=== PATIENT | male | born 1945 | race Caucasian/White ===

== ENCOUNTER → 2023-10-02 | Outpatient (CLI) | payer MEDICARE ==
[~2023-10-02] MED LIST: AEC81 PO; ASCO500T19 PO; ATOR40TA71 PO; CHOL200052 PO; CYAN-52 PO; FERR-82 PO; GLIP10TA9 PO; LISI20TA24 PO; MAGN400T40 PO; OMEP20CA12 PO; PIOG15TA66 PO; TAMS-1 PO; VITA800012 PO; ZINC50TA64 PO
== END | disposition home or self-care (01) ==
LOC: RAH 12:25
PROVIDERS: ATTEND Nurse Practitioner Family
DX: I70.203 Unspecified atherosclerosis of native arteries of extremities, bilateral legs (principal); R60.0 Localized edema; L97.909 Non-pressure chronic ulcer of unspecified part of unspecified lower leg with unspecified severity
CPT/HCPCS: 93925; 93970

== ENCOUNTER 2023-11-12 15:34 | Inpatient (IN) | payer MEDICARE ==
[~2023-11-12] VITALS: Ht 167.6 cm; Wt 76.7 kg
[~2023-11-12 15:34] MED LIST changes: +CILO50TA2 PO; +FOLI0.8C PO; +GABA600T10 PO; +LISI10TA24 PO; -LISI20TA24 PO; +LOVA20TA3 PO; +METF-446 PO; +METO50TA18 PO
[2023-11-12 16:21] LABS: BASOPHILS # (AUTO) 0.07 K/uL (0.00-0.20); BASOPHILS % (AUTO) 0.7 % (0.0-5.0); EOSINOPHILS # (AUTO) 0.28 K/uL (0.00-0.70); EOSINOPHILS % (AUTO) 2.8 % (0.0-8.0); HEMATOCRIT 33.1 % (42-54); IMMATURE GRANULOCYTE ABSOLUTE 0.04 K/uL (0-1); LYMPHOCYTES # (AUTO) 0.9 K/uL (1.0-4.8); LYMPHOCYTES % (AUTO) 8.7 % (21.0-51.0); MEAN CORPUSCULAR HEMOGLOBIN 26.7 pg (27.0-33.0); MEAN CORPUSCULAR HGB CONC 30.8 g/dL (32.0-36.0); MEAN CORPUSCULAR VOLUME 86.6 fL (79-99); MONOCYTES # (AUTO) 0.8 K/uL (0.1-1.0); MONOCYTES % (AUTO) 8.5 % (3.0-13.0); NEUTROPHILS # (AUTO) 7.8 K/uL (1.8-7.7); NEUTROPHILS % (AUTO) 78.9 % (40.0-77.0); PLATELET COUNT (AUTO) 281 K/uL (130-400); RED BLOOD CELL COUNT(AUTO) 3.82 MIL/uL (4.50-6.20); RED CELL DISTRIBUTION WIDTH 19.8 % (11.0-15.5); WHITE BLOOD COUNT (AUTO) 9.9 K/uL (4.8-10.8)
[2023-11-12 16:22] LABS: APPEARANCE,URINE TURBID (CLEAR); BILIRUBIN,URINE NEGATIVE (NEGATIVE); GLUCOSE, URINE (UA) 70 mg/dL (NEGATIVE); KETONES,URINE NEGATIVE (NEGATIVE); LEUKOCYTE ESTERASE ,URINE 500 Leu/uL (NEGATIVE); NITRATE,URINE NEGATIVE (NEGATIVE); OCCULT BLOOD,URINE LARGE (NEGATIVE); PH,URINE 6.5 (5.0-8.0); PROTEIN,URINE 100 mg/dL (NEGATIVE); UROBILINOGEN,URINE 0.2 mg/dL (0.2-1.0)
[2023-11-12 16:30] LABS: COLOR,URINE YELLOW (YELLOW)
[2023-11-12 16:31] LABS: ADD UA MICROSCOPIC YES
[2023-11-12 16:32] LABS: CREATININE 1.1 mg/dL (0.5-1.5); POTASSIUM 4.2 mmol/L (3.5-5.1)
[2023-11-12 16:49] LABS: ALBUMIN 1.9 g/dL (3.5-5.0); BILIRUBIN,TOTAL 0.5 mg/dL (0.2-1.0); TOTAL PROTEIN, SERUM 5.8 g/dL (6.0-8.3)
[2023-11-12 16:53] LABS: BACTERIA,URINE MOD /HPF (None Seen); RBC,URINE TNTC /HPF (0-1); WBC CLUMP MANY /HPF (0-1); WBC,URINE TNTC /HPF (0-1)
[2023-11-12 16:55] LABS: INR 1.13 (0.85-1.15)
[2023-11-12 16:56] LABS: PARTIAL THROMBOPLASTIN TIME 32.3 SEC (26.3-35.5)
[2023-11-12] MEDS: 0.9%NACL 1000ML 2,052 ML IV ONE (17:59)
[2023-11-12] MEDS ORDERED: ONDANSETRON 4MG INJ IV PRN (19:30)
[2023-11-12] MEDS ORDERED: MORPHINE 4 MG SYG IV PRN (19:30)
[2023-11-12] MEDS ORDERED: MORPHINE 2 MG SYG IV PRN (19:30)
[2023-11-12] MEDS ORDERED: ACETAMINOPHEN 325 MG TAB PO PRN ×2 (19:30)
[2023-11-12] MEDS: CEFTRIAXONE 1G VIAL IV SCH (20:51)
[2023-11-12] MEDS: LACTATED RINGERS 1000ML 1,000 ML IV SCH (20:52)
[2023-11-12] MEDS: BALSAM PERU/CASTOR OIL 60 GM TUBE TP SCH (20:52)
[2023-11-12] MEDS: MEROPENEM 1 GM in 0.9%NACL 100ML 100 ML IVPB SCH (21:03)
[2023-11-12] MEDS: MEROPENEM 1 GM VIAL ONE (21:03)
[2023-11-13] VITALS (9 sets, daily range): BP systolic 141–169; BP diastolic 62–81; PULSE 83–92; RESP 16–18; O2SAT 97–99
[2023-11-13] MEDS ORDERED: POTASSIUM CHLORIDE 10% ELIXIR 20 MEQ/15 ML UDCUP PO PRN (02:00)
[2023-11-13] MEDS ORDERED: POTASSIUM CHLORIDE 20MEQ/100ML 100 ML IV PRN (02:00)
[2023-11-13] MEDS ORDERED: PHARMACY COMMUNICATION MISC SCH ×2 (04:30→07:30)
[2023-11-13 05:53] LABS: BASOPHILS # (AUTO) 0.03 K/uL (0.00-0.20); BASOPHILS % (AUTO) 0.4 % (0.0-5.0); EOSINOPHILS # (AUTO) 0.29 K/uL (0.00-0.70); EOSINOPHILS % (AUTO) 3.6 % (0.0-8.0); HEMATOCRIT 32.1 % (42-54); IMMATURE GRANULOCYTE ABSOLUTE 0.05 K/uL (0-1); LYMPHOCYTES # (AUTO) 0.9 K/uL (1.0-4.8); LYMPHOCYTES % (AUTO) 10.9 % (21.0-51.0); MEAN CORPUSCULAR HEMOGLOBIN 26.3 pg (27.0-33.0); MEAN CORPUSCULAR HGB CONC 30.2 g/dL (32.0-36.0); MONOCYTES # (AUTO) 0.8 K/uL (0.1-1.0); MONOCYTES % (AUTO) 9.6 % (3.0-13.0); NEUTROPHILS % (AUTO) 74.9 % (40.0-77.0); PLATELET COUNT (AUTO) 273 K/uL (130-400); RED BLOOD CELL COUNT(AUTO) 3.69 MIL/uL (4.50-6.20); RED CELL DISTRIBUTION WIDTH 19.8 % (11.0-15.5); WHITE BLOOD COUNT (AUTO) 8.1 K/uL (4.8-10.8)
[2023-11-13 06:04] LABS: INR 1.08 (0.85-1.15); PROTHROMBIN TIME 12.5 SEC (9.6-11.6)
[2023-11-13 06:08] LABS: MAGNESIUM 1.6 mg/dL (1.80-2.40); PHOSPHORUS 3.1 mg/dL (2.5-4.9); POTASSIUM 3.8 mmol/L (3.5-5.1); VANCOMYCIN TROUGH 17.3 UG/ML (10.0-20.0)
[2023-11-13] MEDS: INSULIN HUMULIN R 100 UNIT/ML 3ML SQ SCH (06:49)
[2023-11-13] MEDS: FAMOTIDINE 20MG VIAL IV SCH (08:48)
[2023-11-13 09:58] LABS: CREATINE KINASE, TOTAL < 7 U/L (21-232)
[2023-11-13] MEDS ORDERED: VANCOMYCIN PROTOCOL PER PHARMACY IV SCH (10:00)
[2023-11-13] MEDS ORDERED: COMPOUND IV MISC 1 EACH IVSOLN MISC PRN (10:30)
[2023-11-13] MEDS: MEROPENEM 1 GM in 0.9%NACL 100ML IVPB SCH (11:41)
[2023-11-13] MEDS: VANCOMYCIN 1.25 GM/250 ML BAG 250 ML IV SCH (15:17)
[2023-11-13] MEDS: NYSTATIN 15 GM POWDER TP ONE (21:23)
[2023-11-14] VITALS (29 sets, daily range): BP systolic 142–175; BP diastolic 70–81; PULSE 76–90; RESP 15–20; O2SAT 94–97
[2023-11-14] MEDS: MORPHINE 2 MG SYG IV PRN (00:08)
[2023-11-14 06:36] LABS: BASOPHILS # (AUTO) 0.05 K/uL (0.00-0.20); BASOPHILS % (AUTO) 0.7 % (0.0-5.0); EOSINOPHILS # (AUTO) 0.22 K/uL (0.00-0.70); HEMATOCRIT 32.2 % (42-54); IMMATURE GRANULOCYTE ABSOLUTE 0.05 K/uL (0-1); LYMPHOCYTES # (AUTO) 0.6 K/uL (1.0-4.8); LYMPHOCYTES % (AUTO) 8.6 % (21.0-51.0); MEAN CORPUSCULAR HEMOGLOBIN 26.6 pg (27.0-33.0); MEAN CORPUSCULAR HGB CONC 30.4 g/dL (32.0-36.0); MEAN CORPUSCULAR VOLUME 87.3 fL (79-99); MONOCYTES # (AUTO) 0.7 K/uL (0.1-1.0); MONOCYTES % (AUTO) 9.7 % (3.0-13.0); NEUTROPHILS # (AUTO) 5.7 K/uL (1.8-7.7); NEUTROPHILS % (AUTO) 77.3 % (40.0-77.0); PLATELET COUNT (AUTO) 242 K/uL (130-400); RED BLOOD CELL COUNT(AUTO) 3.69 MIL/uL (4.50-6.20); RED CELL DISTRIBUTION WIDTH 19.3 % (11.0-15.5); WHITE BLOOD COUNT (AUTO) 7.3 K/uL (4.8-10.8)
[2023-11-14 07:10] LABS: ALBUMIN 1.8 g/dL (3.5-5.0); BILIRUBIN,TOTAL 0.6 mg/dL (0.2-1.0); POTASSIUM 3.9 mmol/L (3.5-5.1); TOTAL PROTEIN, SERUM 5.5 g/dL (6.0-8.3)
[2023-11-14] MEDS ORDERED: LIDOCAINE PF 100MG/5ML (2%) SYRINGE 5ML ONE (15:40)
[2023-11-14] MEDS ORDERED: ROCURONIUM BROMIDE 10MG/1ML 5ML VL ONE (15:41)
[2023-11-14] MEDS ORDERED: DEXAMETHASONE SOD PHOSPHATE 4 MG/ML 1ML VIAL ONE (15:41)
[2023-11-14] MEDS ORDERED: PROPOFOL 10 MG/ML 20ML VIAL IV ONE ×2 (15:41→15:42)
[2023-11-14] MEDS ORDERED: FENTANYL CITRATE PF 50 MCG/1 ML 2ML VIAL ONE ×2 (15:41→16:51)
[2023-11-14] MEDS ORDERED: MIDAZOLAM HCL 1 MG/ML 2ML VIAL ONE (15:41)
[2023-11-14] MEDS ORDERED: ONDANSETRON 4MG INJ ONE (15:42)
[2023-11-14] MEDS: BUPIVACAINE/PF 0.5% 30ML VIAL ONE (16:36)
[2023-11-14] MEDS ORDERED: NEOSTIGMINE METHYLSULFATE 1MG/ML IV ONE (17:14)
[2023-11-14] MEDS ORDERED: GLYCOPYRROLATE 0.2 MG/ML 5 ML VIAL ONE (17:14)
[2023-11-14] MEDS: MEPERIDINE-PF 25 MG/ML SYG ONE (18:08)
[2023-11-15] VITALS (7 sets, daily range): BP systolic 120–163; BP diastolic 54–77; PULSE 68–84; RESP 16–18; O2SAT 94–95
[2023-11-15 04:53] LABS: BASOPHILS # (AUTO) 0.05 K/uL (0.00-0.20); BASOPHILS % (AUTO) 0.6 % (0.0-5.0); EOSINOPHILS # (AUTO) 0.06 K/uL (0.00-0.70); EOSINOPHILS % (AUTO) 0.7 % (0.0-8.0); HEMATOCRIT 30.6 % (42-54); IMMATURE GRANULOCYTE ABSOLUTE 0.03 K/uL (0-1); LYMPHOCYTES # (AUTO) 0.7 K/uL (1.0-4.8); LYMPHOCYTES % (AUTO) 8.8 % (21.0-51.0); MEAN CORPUSCULAR HEMOGLOBIN 26.8 pg (27.0-33.0); MEAN CORPUSCULAR HGB CONC 30.4 g/dL (32.0-36.0); MEAN CORPUSCULAR VOLUME 88.2 fL (79-99); MONOCYTES # (AUTO) 0.7 K/uL (0.1-1.0); MONOCYTES % (AUTO) 9.1 % (3.0-13.0); NEUTROPHILS # (AUTO) 6.6 K/uL (1.8-7.7); NEUTROPHILS % (AUTO) 80.4 % (40.0-77.0); PLATELET COUNT (AUTO) 253 K/uL (130-400); RED BLOOD CELL COUNT(AUTO) 3.47 MIL/uL (4.50-6.20); WHITE BLOOD COUNT (AUTO) 8.2 K/uL (4.8-10.8)
[2023-11-15 05:12] LABS: CREATININE 0.9 mg/dL (0.5-1.5); MAGNESIUM 1.5 mg/dL (1.80-2.40); PHOSPHORUS 3.9 mg/dL (2.5-4.9); POTASSIUM 4.3 mmol/L (3.5-5.1)
[2023-11-15] MEDS: MEROPENEM 1 GM in 0.9%NACL 100ML 100 ML IVPB SCH (05:15)
[2023-11-15] MEDS: MAGNESIUM 2GM PREMIX 50ML 50 ML IV PRN (06:53)
[2023-11-15] MEDS: METOPROLOL TARTRATE 50 MG TAB PO SCH (09:03)
[2023-11-15] MEDS: LISINOPRIL 10 MG TABLET PO SCH (09:03)
[2023-11-15 11:39] LABS: CREATININE 0.9 mg/dL (0.5-1.5); POTASSIUM 4.2 mmol/L (3.5-5.1)
[2023-11-16] VITALS (9 sets, daily range): BP systolic 111–144; BP diastolic 60–72; PULSE 66–82; RESP 16–18; O2SAT 96
[2023-11-16 05:40] LABS: BASOPHILS # (AUTO) 0.04 K/uL (0.00-0.20); BASOPHILS % (AUTO) 0.6 % (0.0-5.0); EOSINOPHILS # (AUTO) 0.26 K/uL (0.00-0.70); EOSINOPHILS % (AUTO) 3.9 % (0.0-8.0); HEMATOCRIT 30.2 % (42-54); IMMATURE GRANULOCYTE ABSOLUTE 0.04 K/uL (0-1); LYMPHOCYTES # (AUTO) 0.8 K/uL (1.0-4.8); LYMPHOCYTES % (AUTO) 12.5 % (21.0-51.0); MEAN CORPUSCULAR HEMOGLOBIN 27.5 pg (27.0-33.0); MEAN CORPUSCULAR HGB CONC 31.5 g/dL (32.0-36.0); MEAN CORPUSCULAR VOLUME 87.3 fL (79-99); MONOCYTES # (AUTO) 0.7 K/uL (0.1-1.0); MONOCYTES % (AUTO) 10.8 % (3.0-13.0); NEUTROPHILS # (AUTO) 4.8 K/uL (1.8-7.7); NEUTROPHILS % (AUTO) 71.6 % (40.0-77.0); PLATELET COUNT (AUTO) 251 K/uL (130-400); RED BLOOD CELL COUNT(AUTO) 3.46 MIL/uL (4.50-6.20); RED CELL DISTRIBUTION WIDTH 19.6 % (11.0-15.5); WHITE BLOOD COUNT (AUTO) 6.7 K/uL (4.8-10.8)
[2023-11-16 06:04] LABS: CREATININE 0.9 mg/dL (0.5-1.5); POTASSIUM 3.8 mmol/L (3.5-5.1)
[2023-11-16] MEDS: HEPARIN 5,000 UNIT VIAL SQ SCH (09:24)
[2023-11-16] MEDS: VANCOMYCIN 1.25 GM/250 ML BAG 250 ML IV SCH (14:02)
[2023-11-17] VITALS (7 sets, daily range): BP systolic 120–161; BP diastolic 55–78; PULSE 66–78; RESP 16–18; O2SAT 95–97
[2023-11-17 05:58] LABS: BASOPHILS # (AUTO) 0.03 K/uL (0.00-0.20); BASOPHILS % (AUTO) 0.6 % (0.0-5.0); EOSINOPHILS # (AUTO) 0.18 K/uL (0.00-0.70); EOSINOPHILS % (AUTO) 3.4 % (0.0-8.0); HEMATOCRIT 27.7 % (42-54); IMMATURE GRANULOCYTE ABSOLUTE 0.05 K/uL (0-1); LYMPHOCYTES # (AUTO) 0.8 K/uL (1.0-4.8); LYMPHOCYTES % (AUTO) 15.1 % (21.0-51.0); MEAN CORPUSCULAR HEMOGLOBIN 26.6 pg (27.0-33.0); MEAN CORPUSCULAR HGB CONC 30.7 g/dL (32.0-36.0); MEAN CORPUSCULAR VOLUME 86.8 fL (79-99); MONOCYTES # (AUTO) 0.6 K/uL (0.1-1.0); MONOCYTES % (AUTO) 10.7 % (3.0-13.0); NEUTROPHILS # (AUTO) 3.6 K/uL (1.8-7.7); NEUTROPHILS % (AUTO) 69.2 % (40.0-77.0); PLATELET COUNT (AUTO) 215 K/uL (130-400); RED BLOOD CELL COUNT(AUTO) 3.19 MIL/uL (4.50-6.20); RED CELL DISTRIBUTION WIDTH 19.4 % (11.0-15.5); WHITE BLOOD COUNT (AUTO) 5.2 K/uL (4.8-10.8)
[2023-11-17 06:09] LABS: POTASSIUM 3.6 mmol/L (3.5-5.1)
[2023-11-17] MEDS: VANCOMYCIN 1G/250ML KIT 250 ML IV SCH (15:22)
[2023-11-18 04:00] VITALS: BP 153/70; PULSE 72; RESP 17
[2023-11-18 05:47] LABS: BASOPHILS # (AUTO) 0.03 K/uL (0.00-0.20); BASOPHILS % (AUTO) 0.5 % (0.0-5.0); EOSINOPHILS # (AUTO) 0.16 K/uL (0.00-0.70); EOSINOPHILS % (AUTO) 2.9 % (0.0-8.0); HEMATOCRIT 27.9 % (42-54); IMMATURE GRANULOCYTE ABSOLUTE 0.05 K/uL (0-1); LYMPHOCYTES # (AUTO) 0.9 K/uL (1.0-4.8); LYMPHOCYTES % (AUTO) 16.1 % (21.0-51.0); MEAN CORPUSCULAR HEMOGLOBIN 26.8 pg (27.0-33.0); MEAN CORPUSCULAR HGB CONC 31.2 g/dL (32.0-36.0); MEAN CORPUSCULAR VOLUME 85.8 fL (79-99); MONOCYTES # (AUTO) 0.7 K/uL (0.1-1.0); MONOCYTES % (AUTO) 11.6 % (3.0-13.0); NEUTROPHILS # (AUTO) 3.8 K/uL (1.8-7.7); PLATELET COUNT (AUTO) 221 K/uL (130-400); RED BLOOD CELL COUNT(AUTO) 3.25 MIL/uL (4.50-6.20); RED CELL DISTRIBUTION WIDTH 19.2 % (11.0-15.5); WHITE BLOOD COUNT (AUTO) 5.6 K/uL (4.8-10.8)
[2023-11-18 06:08] LABS: ALBUMIN 1.6 g/dL (3.5-5.0); BILIRUBIN,TOTAL 0.6 mg/dL (0.2-1.0); CARBON DIOXIDE 28 mmol/L (21-32); CHLORIDE 103 mmol/L (101-111); CREATININE 0.9 mg/dL (0.5-1.5); GLOMERULAR FILTR. RATE CALC 88 mL/min (>90); GLUCOSE,RANDOM 113 mg/dL (70-105); PHOSPHORUS 2.8 mg/dL (2.5-4.9); POTASSIUM 3.5 mmol/L (3.5-5.1); SODIUM SERUM 139 mmol/L (136-145); TOTAL PROTEIN, SERUM 5.1 g/dL (6.0-8.3); UREA NITROGEN, BLOOD 13 mg/dL (7-18)
[2023-11-18 06:29] LABS: ASPARTATE AMINOTRANSFERASE 11 U/L (10-37)
[2023-11-18 06:31] LABS: ALANINE AMINOTRANSFERASE < 6 U/L (12-78)
[2023-11-18] MEDS: KCL 20 MEQ ERTAB PO PRN (06:49)
[2023-11-18 08:00] VITALS: BP 136/77; PULSE 76; RESP 16; O2SAT 95
[2023-11-18 11:42] VITALS: BP 151/81; PULSE 76; RESP 16
[2023-11-18 16:00] VITALS: BP 134/66; PULSE 78; RESP 18
== END 2023-11-18 17:30 | DRG 602 ==
LOC: EDH 15:34 → EDHIP 19:21 → 3BH 11-13 01:40
PROVIDERS: ADMIT Internal Medicine; ATTEND Internal Medicine
PROC: 0J9L00Z Drainage of Right Upper Leg Subcutaneous Tissue and Fascia with Drainage Device, Open Approach (ICD-10-PCS; principal; 2023-11-14 16:03)
DX: L02.415 Cutaneous abscess of right lower limb (principal); K65.1 Peritoneal abscess; M60.051 Infective myositis, right thigh; F05 Delirium due to known physiological condition; M86.8X8 Other osteomyelitis, other site; I82.B11 Acute embolism and thrombosis of right subclavian vein; I82.A11 Acute embolism and thrombosis of right axillary vein; E11.69 Type 2 diabetes mellitus with other specified complication; B96.89 Other specified bacterial agents as the cause of diseases classified elsewhere; E11.9 Type 2 diabetes mellitus without complications; I25.10 Atherosclerotic heart disease of native coronary artery without angina pectoris; E86.0 Dehydration; L98.429 Non-pressure chronic ulcer of back with unspecified severity; L89.152 Pressure ulcer of sacral region, stage 2; I10 Essential (primary) hypertension; N13.9 Obstructive and reflux uropathy, unspecified; N32.0 Bladder-neck obstruction; R62.7 Adult failure to thrive; E78.5 Hyperlipidemia, unspecified; I25.2 Old myocardial infarction; Z79.82 Long term (current) use of aspirin; Z85.46 Personal history of malignant neoplasm of prostate; Z92.3 Personal history of irradiation; Z87.440 Personal history of urinary (tract) infections; Z86.19 Personal history of other infectious and parasitic diseases
CPT/HCPCS: 36415; 71045; 73700; 76882; 80048; 80053; 80202; 81001; 82140; 82550; 82948; 83605; 83735; 84100; 84484; 85025; 85610; 85651; 85730; 86140; 86850; 86900; 86901; 87040; 87070; 87076; 87077; 87088; 87186; 87205; 93005; 93970; A4344; G0378; J0696; J1100; J1644; J1815; J2001; J2175; J2185; J2250; J2270; J2405; J2704; J2710; J3010; J3370; J3475; J3490; J7030; J7120; 3370; A4452; A4649; A4663; A5113; C1758; C1769; J0665

== ENCOUNTER 2023-12-05 08:07 | Emergency (ER) | payer OTHER, MEDICARE ==
[~2023-12-05] VITALS: Ht 172.7 cm; Wt 64.0 kg
[2023-12-05 08:08] VITALS: BP 101/51; PULSE 84; RESP 14
== END 2023-12-05 09:42 | disposition home or self-care (01) ==
LOC: EDH 08:07
DX: T83.091A Other mechanical complication of indwelling urethral catheter, initial encounter (principal); I10 Essential (primary) hypertension; E78.00 Pure hypercholesterolemia, unspecified; Z85.46 Personal history of malignant neoplasm of prostate
CPT/HCPCS: 51702